=== PATIENT | female | born 1970 | race Caucasian/White ===

== ENCOUNTER 2025-01-03 20:47 | Emergency (ER) | payer BC, MEDICAID, OTHER ==
[~2025-01-03] VITALS: Ht 170.2 cm; Wt 105.9 kg
[~2025-01-03 20:47] MED LIST: DIPH-423 PO; DOCU100C40 PO
--- NOTE | 2025-01-03 20:53 | ELECTROCARDIOGRAPH REPORT ---
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 Hussein Dhaliwal Measurements Intervals [place] Rate: 93 P: 13 LA: 135 QRS: 80 QRSD: 93 T: 4 QT: 350 QTc: 436 Interpretive Statements Sinus rhythm Borderline T abnormalities, anterior leads Electronically Signed On 01-03-2025 21:23:[address] Hussein Dhaliwal Please click the below link to view image of tracing.
[2025-01-03 21:14] LABS: MEAN PLATELET VOLUME 8.3 FL (7.4-10.4); RED CELL DISTRIBUTION WIDTH 12.8 % (11.5-14.5)
--- NOTE | 2025-01-03 21:22 | RADIOLOGY REPORT ---
CHEST RADIOGRAPH Indication: CP Technique: Single frontal view of the chest was obtained Comparison: None FINDINGS: Lines and Tubes: None Lungs: No focal consolidation. Pleura: No effusion. No pneumothorax. Cardiomediastinal contours: Unremarkable Bones: No acute osseous abnormality. IMPRESSION: No acute cardiopulmonary disease.
[2025-01-03 21:49] LABS: CREATININE 0.84 MG/DL (0.40-0.90); PRO BRAIN NATRIURETIC PEPTIDE 42 PG/ML (0-125); TOTAL CARBON DIOXIDE 27.6 MMOL/L (24-32); eCRCL 74 ML/MIN; eGFR 71 ML/MIN
--- NOTE | 2025-01-03 21:55 | Physician Documentation ---
History of Present Illness ~ Chief Complaint: Chest Pain Stated Complaint: CHEST PAIN/SOB HPI This is a 54-year-old female who presents with chest pain, shortness of breath, and feeling of generalized weakness onset earlier today Medication Reconciliation Allergies: Coded Allergies: Sulfa (Sulfonamide Antibiotics) (Verified Allergy, Intermediate, 07/15/11) adhesive (Unverified Allergy, Intermediate, RASH, 08/19/13) Uncoded Allergies: seafood (Allergy, Mild, patient breaks out in hives , 07/15/11) Scheduled Docusate Sodium (Docusate Sodium), 1 CAP PO BID Scheduled PRN Diphenhydramine Hcl* (Benadryl*), 1 CAP PO 2-4 X WEEK PRN PRN for allergies, (Reported) Past Medical History Past Medical History: No Pertinent History Past Surgical History: no surgical history Alcohol Use: None Drug Use: none Lives In: Home Review of Systems ROS As stated above in the HPI, otherwise all systems are reviewed and negative. Physical Exam Vital Signs: Temperature: 97.9, Source: Temporal, Heart Rate: 91, Respiratory Rate: 16, BP: 131/94, Pulse Oximetry: 97, Weight: 105.910 Oxygen Flow Rate: 0 Physical Exam VITALS: Reviewed and as above. GENERAL: Alert, nontoxic appearing, no apparent distress. RESPIRATORY: No increased work of breathing, no respiratory distress, speaking in full clear sentences Progress Results/Orders Results/Orders Laboratory Tests Test 01/03/25 20:58 01/03/25 23:05 White Blood Count 7.5 Red Blood Count 4.82 Hemoglobin 14.7 Hematocrit 42.8 Mean Corpuscular Volume 88.7 Mean Corpuscular Hemoglobin 30.5 Mean Corpuscular Hemoglobin Concent 34.3 Red Cell Distribution Width 12.8 Platelet Count 302 Mean Platelet Volume 8.3 Neutrophils (%) (Auto) 69.3 Lymphocytes (%) (Auto) 22.5 Monocytes (%) (Auto) 4.7 Eosinophils (%) (Auto) 2.6 Basophils (%) (Auto) 0.9 Neutrophils # (Auto) 5.2 Lymphocytes # (Auto) 1.7 Monocytes # (Auto) 0.4 Eosinophils # (Auto) 0.2 Basophils # (Auto) 0.1 CBC Comment Sodium Level 140 Potassium Level 3.7 Chloride Level 103 Carbon Dioxide Level 27.6 Anion Gap 9 Blood Urea Nitrogen 12 Creatinine 0.84 Estimated GFR/1.73 m2 71 BUN/Creatinine Ratio 14.3 Glucose Level 121 H Calcium Level 9.1 Troponin I High Sensitivity 5 6 Pro-B-Type Natriuretic Peptide 42 Albumin 3.9 Chemistry Comments Troponin I High Sens Percent Delta 20 Troponin I Hi Sens Absolute Change 1 Medical Decision Making Findings MSE performed in triage and patient returned to ED lobby by nursing staff to await available ED room. Patient appears to have eloped from lobby Differential Dx:Considerations: Include: angina, aortic dissection, cholelithiasis, CHF, costochondritis, esophageal reflux/spasm, gastritis, herpes zoster, myocardial infarction, pericarditis, pancreatitis, pneumonia, pneumothorax, pulmonary embolus Departure Disposition: 07 LEFT AWOL/ELOPED Impression: Primary Impression: Chest pain Qualified Codes: R07.9 - Chest pain, unspecified Referrals: NO PRIMARY CARE PROVIDER (PCP) Signature Scribe Signature: No Scribe Attestation: The note accurately reflects work and decisions made by me.SHARON Mcnamara 01/08/25 20:57 TRE ARORA Jan 03, 2025 21:55
[2025-01-03 22:56] VITALS: BP 158/104; PULSE 93; RESP 16; TEMP 97.8; O2SAT 97
== END 2025-01-04 01:50 | disposition left against medical advice (07) ==
LOC: ER 20:48
DX: R07.9 Chest pain, unspecified (principal); I10 Essential (primary) hypertension; Z88.2 Allergy status to sulfonamides; Z91.048 Other nonmedicinal substance allergy status; Z79.899 Other long term (current) drug therapy
CPT/HCPCS: 36415; 71045; 80048; 83880; 84484; 85025; 93005; 99285